=== PATIENT | male | born 1975 | race Caucasian/White ===

== ENCOUNTER → 2017-07-16 | Emergency (ER) | payer OTHER ==
[~2017-07-16] VITALS: Ht 172.7 cm; Wt 127.0 kg
[~2017-07-16] MED LIST: CONEX TABLET1 EACH PO; DICLOFENAC SODI50 MG PO; GENVOYA TABLET1 EACH; NEURONTIN600 MG; RETROVIR; TUSICOF LIQUID120 ML PO; VIREAD300 MG
== END | disposition home or self-care (01) ==
LOC: ER 12:05
DX: M54.89 Other dorsalgia (principal); R07.89 Other chest pain; R35.0 Frequency of micturition; F41.8 Other specified anxiety disorders

== ENCOUNTER 2018-11-15 13:54 | Emergency (ER) | payer OTHER ==
[~2018-11-15] VITALS: Ht 170.2 cm; Wt 136.1 kg
== END 2018-11-15 17:35 | disposition home or self-care (01) ==
LOC: ER 13:54
DX: M54.5 Low back pain (principal)